=== PATIENT | male | born 1950 | race African-American/Black ===

== ENCOUNTER 2018-11-26 14:51 | Emergency (ER) | payer OTHER ==
[~2018-11-26] VITALS: Ht 175.3 cm; Wt 63.0 kg
[2018-11-26 15:00] VITALS: BP 122/63
[2018-11-26] MEDS ORDERED: IBUPROFEN 800MG TABLET PO ONE (15:45)
== END 2018-11-26 16:46 | disposition home or self-care (01) ==
LOC: ER 14:51
DX: M25.551 Pain in right hip (principal); F17.200 Nicotine dependence, unspecified, uncomplicated; M41.9 Scoliosis, unspecified
CPT/HCPCS: 73502; 99283